=== PATIENT | male | born 1995 | race Caucasian/White ===

== ENCOUNTER 2023-09-30 13:20 | Emergency (ER) | payer OTHER ==
[2023-09-30 13:44] VITALS: BP 140/70; PULSE 78; RESP 15; TEMP 98.1; BMI 33.4
[2023-09-30] MEDS ORDERED: ACETAMINOPHEN 500 MG TABLET (FP) ONE (14:01)
[2023-09-30] MEDS: ACETAMINOPHEN 500 MG TABLET (FP) PO ONE (14:02)
== END 2023-09-30 15:21 | disposition home or self-care (01) ==
LOC: FER 13:20
DX: S63.612A Unspecified sprain of right middle finger, initial encounter (principal); W01.0XXA Fall on same level from slipping, tripping and stumbling without subsequent striking against object, initial encounter
CPT/HCPCS: 73130-TC-RT-FY; 99283-25